=== PATIENT | female | born 1990 | race African-American/Black ===

== ENCOUNTER 2017-12-22 09:06 | Emergency (ER) | payer SELFPAY ==
[2017-12-22 09:46] LABS: URINE HCG POC HCG NEGATIVE (Negative)
[2017-12-22 10:10] LABS: BILIRUBIN,URINE NEGATIVE (NEG); CLARITY,URINE CLEAR; COLOR,URINE YELLOW; GLUCOSE,URINE NEGATIVE (NEG); NITRITE,URINE NEGATIVE (NEG); PROTEIN,URINE NEGATIVE (NEG-TRACE)
[2017-12-22 10:24] LABS: SQUAMOUS EPITHELIAL CELL,UR MANY /LPF
[2017-12-22 10:25] LABS: BACTERIA,URINE MANY /HPF (0-FEW)
[2017-12-22 11:51] LABS: ADD MAN DIFF? NO
[2017-12-22 11:54] LABS: BASO # 0.1 x10^3/uL (0.0-0.2); BASO % 1 % (0-3); EOS # 0.4 x10^3/uL (0.0-0.7); EOS % 5 % (0-3); HEMOGLOBIN 13.3 g/dL (12.0-15.5); LYMPH # 2.5 x10^3/uL (1.0-4.8); LYMPH % 28 % (24-48); MEAN CORPUSCULAR HEMOGLOBIN 31 pg (25-35); MEAN CORPUSCULAR HGB CONC 33 g/dL (31-37); MEAN CORPUSCULAR VOLUME 94 fL (79-100); MONO # 0.8 x10^3/uL (0.0-1.1); MONO % 9 % (0-9); NEUT # 4.9 x10^3uL (1.8-7.7); NEUT % 57 % (31-73); PLATELET COUNT 184 x10^3/uL (140-400); RED BLOOD COUNT 4.26 x10^6/uL (3.50-5.40); RED CELL DISTRIBUTION WIDTH 14.8 % (11.5-14.5); WHITE BLOOD COUNT 8.7 x10^3/uL (4.0-11.0)
[2017-12-22 12:02] LABS: PARTIAL THROMBOPLASTIN TIME 27 SEC (24-38); PROTHROMBIN TIME PATIENT 12.7 SEC (11.7-14.0)
[2017-12-22 12:09] LABS: ANION GAP 7 (6-14); BLOOD UREA NITROGEN 10 mg/dL (7-20); CALCIUM 8.6 mg/dL (8.5-10.1); CARBON DIOXIDE 30 mmol/L (21-32); CHLORIDE 105 mmol/L (98-107); CREATININE 0.8 mg/dL (0.6-1.0); GFR 104.1; GLUCOSE 94 mg/dL (70-99); POTASSIUM 3.8 mmol/L (3.5-5.1); SODIUM 142 mmol/L (136-145)
[2017-12-22 12:12] LABS: ALBUMIN 3.7 g/dL (3.4-5.0); ALK PHOS 59 U/L (46-116); ALT (SGPT) 21 U/L (14-59); AST (SGOT) 15 U/L (15-37); DIRECT BILIRUBIN 0.1 mg/dL (0.0-0.2); LIPASE 429 U/L (73-393); TOTAL BILIRUBIN 0.4 mg/dL (0.2-1.0); TOTAL PROTEIN 7.5 g/dL (6.4-8.2)
[2017-12-22] MEDS: ONDANSETRON PF 4 MG/2 ML VIAL. IV ×2 (12:17)
[2017-12-22] MEDS: IV NORMAL SALINE 1000ML BAG 1,000 ML IV ×2 (12:17)
[2017-12-22 12:18] LABS: CKMB INDEX 0.7 % (0-4); CKMB MASS 0.7 ng/mL (0.0-3.6); CREATINE KINASE 101 U/L (26-192)
[2017-12-22 12:52] LABS: BARBITURATES NEG (NEG); BENZODIAZEPINES NEG (NEG); CANNABINOIDS POS (NEG); COCAINE POS (NEG); METHADONE NEG (NEG); OPIATES NEG (NEG); PHENCYCLIDINE POS (NEG)
[2017-12-22 12:54] LABS: AMPHETAMINE/METHAMPHETAMINE POS (NEG); ETHANOL, URINE NEG (NEG)
== END 2017-12-22 13:31 | disposition home or self-care (01) ==
LOC: ER 09:06
DX: N30.00 Acute cystitis without hematuria (principal); J45.909 Unspecified asthma, uncomplicated
CPT/HCPCS: 36415; 76830; 76856; 80048; 80076; 80307; 81001; 81025; 82553; 83690; 85025; 85610; 85730; 87086; 96361; 96374; 99285-25; J2405; J7030

== ENCOUNTER 2018-03-05 08:01 | Emergency (ER) | payer SELFPAY ==
[2018-03-05] MEDS: AZITHROMYCIN 250 MG TABLET. PO (08:45)
[2018-03-05] MEDS: cefTRIAXone IM 250 MG VIAL IM (08:46)
== END 2018-03-05 09:10 | disposition home or self-care (01) ==
LOC: ER 09:10
DX: A54.9 Gonococcal infection, unspecified (principal); Z20.2 Contact with and (suspected) exposure to infections with a predominantly sexual mode of transmission; J45.909 Unspecified asthma, uncomplicated; Z87.440 Personal history of urinary (tract) infections
CPT/HCPCS: 96372; 99283; J0696; Q0144

== ENCOUNTER 2018-04-03 15:35 | Emergency (ER) | payer SELFPAY ==
[2018-04-03 16:29] LABS: BILIRUBIN,URINE SMALL (NEG); CLARITY,URINE CLEAR; COLOR,URINE AMBER; GLUCOSE,URINE NEGATIVE (NEG); NITRITE,URINE NEGATIVE (NEG); PROTEIN,URINE NEGATIVE (NEG-TRACE)
[2018-04-03 16:36] LABS: AMPHETAMINE/METHAMPHETAMINE NEG (NEG); BARBITURATES NEG (NEG); BENZODIAZEPINES NEG (NEG); CANNABINOIDS POS (NEG); COCAINE POS (NEG); ETHANOL, URINE NEG (NEG); METHADONE NEG (NEG); OPIATES NEG (NEG); PHENCYCLIDINE POS (NEG)
[2018-04-03 16:39] LABS: BACTERIA,URINE 0 /HPF (0-FEW); SQUAMOUS EPITHELIAL CELL,UR FEW /LPF
[2018-04-03 16:55] LABS: URINE HCG POC HCG NEGATIVE (Negative)
[2018-04-05 14:21] LABS: CHLAMYDIA PROBE Negative (Negative); GC PROBE Negative (Negative)
== END 2018-04-03 17:21 | disposition home or self-care (01) ==
LOC: ER 17:21
DX: N39.0 Urinary tract infection, site not specified (principal); N76.0 Acute vaginitis; B96.89 Other specified bacterial agents as the cause of diseases classified elsewhere; J45.909 Unspecified asthma, uncomplicated; F17.210 Nicotine dependence, cigarettes, uncomplicated
CPT/HCPCS: 80307; 81001; 81025; 87491; 87591; 99284; Q0111

== ENCOUNTER 2019-01-19 02:16 | Emergency (ER) | payer SELFPAY ==
[~2019-01-19] VITALS: Ht 162.6 cm; Wt 47.6 kg
[~2019-01-19 02:16] MED LIST: CIPR250T30 PO; METR500T PO; SULF1TAB24 PO
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
[2019-01-19] MEDS ORDERED: IV NORMAL SALINE 1000ML BAG 1,000 ML IV ONE (03:30)
[2019-01-19 04:05] LABS: BILIRUBIN,URINE NEGATIVE (NEG); CLARITY,URINE CLEAR; COLOR,URINE YELLOW; NITRITE,URINE NEGATIVE (NEG); PH,URINE 6.5; PROTEIN,URINE NEGATIVE (NEG-TRACE)
[2019-01-19 04:26] LABS: BARBITURATES NEG (NEG); BENZODIAZEPINES NEG (NEG); CANNABINOIDS POS (NEG); COCAINE NEG (NEG); METHADONE NEG (NEG); OPIATES NEG (NEG); PHENCYCLIDINE NEG (NEG)
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
[2019-01-19 04:41] LABS: BASO % 0 % (0-3); EOS # 0.2 x10^3/uL (0.0-0.7); EOS % 3 % (0-3); HEMATOCRIT 39.2 % (36.0-47.0); LYMPH # 2.1 x10^3/uL (1.0-4.8); LYMPH % 28 % (24-48); MEAN CORPUSCULAR HEMOGLOBIN 31 pg (25-35); MEAN CORPUSCULAR HGB CONC 33 g/dL (31-37); MEAN CORPUSCULAR VOLUME 93 fL (79-100); MONO # 0.7 x10^3/uL (0.0-1.1); MONO % 10 % (0-9); NEUT # 4.4 x10^3uL (1.8-7.7); NEUT % 59 % (31-73); PLATELET COUNT 179 x10^3/uL (140-400); RED BLOOD COUNT 4.22 x10^6/uL (3.50-5.40); RED CELL DISTRIBUTION WIDTH 14.2 % (11.5-14.5); WHITE BLOOD COUNT 7.6 x10^3/uL (4.0-11.0)
[2019-01-19 04:50] LABS: BACTERIA,URINE FEW /HPF (0-FEW); SQUAMOUS EPITHELIAL CELL,UR FEW /LPF
[2019-01-19 04:54] LABS: AMPHETAMINE/METHAMPHETAMINE NEG (NEG)
[2019-01-19 04:58] LABS: CALCIUM 8.7 mg/dL (8.5-10.1); CREATININE 0.8 mg/dL (0.6-1.0); GFR 102.6; POTASSIUM 3.3 mmol/L (3.5-5.1)
[2019-01-19] MEDS ORDERED: ORPH100T PO (05:01)
[2019-01-19 05:04] LABS: ALBUMIN 3.9 g/dL (3.4-5.0); ALBUMIN/GLOBULIN RATIO 1.1 (1.0-1.7); MAGNESIUM 2.2 mg/dL (1.8-2.4); TOTAL BILIRUBIN 0.6 mg/dL (0.2-1.0); TOTAL PROTEIN 7.6 g/dL (6.4-8.2)
[2019-01-19 05:06] VITALS: BP 109/67
[2019-01-19] MEDS ORDERED: POTASSIUM CHLORIDE 20 MEQ TABLET.ER. PO ONE (05:30)
--- NOTE | 2019-01-19 06:51 | EKG ---
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
== END 2019-01-19 05:35 | disposition home or self-care (01) ==
LOC: ER 02:16
DX: T74.11XA Adult physical abuse, confirmed, initial encounter (principal); R42 Dizziness and giddiness; F41.9 Anxiety disorder, unspecified; E87.6 Hypokalemia; R51 Headache; J45.909 Unspecified asthma, uncomplicated; N89.8 Other specified noninflammatory disorders of vagina; Y04.2XXA Assault by strike against or bumped into by another person, initial encounter; Y93.89 Activity, other specified; Y92.89 Other specified places as the place of occurrence of the external cause; Y99.8 Other external cause status
CPT/HCPCS: 36415; 70450; 72125; 80053; 80307; 81001; 81025; 83735; 85025; 93005; 96361; 96374; 99284; G0480; J2060; J7030

== ENCOUNTER 2019-02-10 05:25 | Emergency (ER) | payer SELFPAY ==
[~2019-02-10] VITALS: Ht 149.9 cm; Wt 49.9 kg
[~2019-02-10 05:25] MED LIST changes: +ORPH100T PO
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
[2019-02-10 07:27] LABS: BARBITURATES NEG (NEG); BENZODIAZEPINES NEG (NEG); CANNABINOIDS POS (NEG); COCAINE POS (NEG); METHADONE NEG (NEG); OPIATES NEG (NEG); PHENCYCLIDINE POS (NEG)
[2019-02-10 07:29] LABS: AMPHETAMINE/METHAMPHETAMINE NEG (NEG)
[2019-02-10 07:30] VITALS: BP 111/71
[2019-02-10] MEDS ORDERED: OXYM30SP NS (07:48)
[2019-02-10] MEDS ORDERED: NAPR-683 PO (07:48)
== END 2019-02-10 08:00 | disposition home or self-care (01) ==
LOC: ER 05:25
DX: S02.2XXA Fracture of nasal bones, initial encounter for closed fracture (principal); R51 Headache; F19.10 Other psychoactive substance abuse, uncomplicated; F17.210 Nicotine dependence, cigarettes, uncomplicated; J45.909 Unspecified asthma, uncomplicated; Z90.89 Acquired absence of other organs; Z71.6 Tobacco abuse counseling; Y04.0XXA Assault by unarmed brawl or fight, initial encounter; Y93.89 Activity, other specified; Y92.89 Other specified places as the place of occurrence of the external cause; Y99.8 Other external cause status
CPT/HCPCS: 70450; 70486; 72125; 80307; 81025; 99284-25

== ENCOUNTER 2019-02-19 03:03 | Emergency (ER) | payer SELFPAY ==
[~2019-02-19] VITALS: Ht 149.9 cm; Wt 49.9 kg
[~2019-02-19 03:03] MED LIST changes: +NAPR-683 PO; +OXYM30SP NS
[2019-02-19 03:10] VITALS: BP 110/68
[2019-02-19 03:27] LABS: BILIRUBIN,URINE NEGATIVE (NEG); CLARITY,URINE CLEAR; COLOR,URINE YELLOW; NITRITE,URINE NEGATIVE (NEG); PROTEIN,URINE NEGATIVE (NEG-TRACE)
[2019-02-19] MEDS ORDERED: cefTRIAXone IM 250 MG VIAL IM ONE (03:45)
[2019-02-19] MEDS ORDERED: FLUCONAZOLE 100 MG TABLET. PO ONE (03:45)
[2019-02-19] MEDS ORDERED: AZITHROMYCIN 250 MG TABLET. PO ONE (03:45)
[2019-02-19 03:46] LABS: BACTERIA,URINE 0 /HPF (0-FEW); SQUAMOUS EPITHELIAL CELL,UR FEW /LPF; WBC,URINE 0 /HPF (0-4)
[2019-02-19 03:48] LABS: TRICHOMONAS,URINE PRESENT
[2019-02-19] MEDS ORDERED: METR500T PO (04:12)
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
== END 2019-02-19 04:30 | disposition home or self-care (01) ==
LOC: ER 03:03
DX: A59.01 Trichomonal vulvovaginitis (principal); J45.909 Unspecified asthma, uncomplicated; Z90.89 Acquired absence of other organs
CPT/HCPCS: 81001; 81025; 87491; 87591; 96372; 99283; J0696; Q0144

== ENCOUNTER 2019-02-22 00:52 | Emergency (ER) | payer SELFPAY ==
[~2019-02-22] VITALS: Ht 165.1 cm; Wt 49.9 kg
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
== END 2019-02-22 04:45 | disposition home or self-care (01) ==
LOC: ER 00:52 → EEVIPCON 00:52 → ER 04:45
DX: T74.11XA Adult physical abuse, confirmed, initial encounter (principal); J45.909 Unspecified asthma, uncomplicated; Z98.51 Tubal ligation status; Z90.89 Acquired absence of other organs; Y04.0XXA Assault by unarmed brawl or fight, initial encounter; Y93.89 Activity, other specified; Y92.89 Other specified places as the place of occurrence of the external cause; Y99.8 Other external cause status
CPT/HCPCS: 99281

== ENCOUNTER 2021-03-04 09:57 | Emergency (ER) | payer SELFPAY ==
[~2021-03-04] VITALS: Ht 149.9 cm; Wt 50.0 kg
[~2021-03-04 09:57] MED LIST changes: -OXYM30SP NS; +OXYM30SP25 NS
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
[2021-03-04 11:36] LABS: BILIRUBIN,URINE NEGATIVE (NEG); CLARITY,URINE CLEAR; COLOR,URINE YELLOW; NITRITE,URINE NEGATIVE (NEG); PROTEIN,URINE NEGATIVE (NEG-TRACE)
[2021-03-04 12:07] LABS: BACTERIA,URINE FEW /HPF (0-FEW); RBC,URINE 0 /HPF (0-2); WBC,URINE 20-40 /HPF (0-4)
[2021-03-04] MEDS ORDERED: AZITHROMYCIN 250 MG TABLET. PO ONE (14:15)
[2021-03-04] MEDS ORDERED: cefTRIAXone IM 500 MG VIAL. IM ONE (14:15)
[2021-03-04] MEDS ORDERED: metroNIDAZOLE 500 MG TABLET PO ONE (14:15)
[2021-03-04] MEDS ORDERED: CLIN150C15 PO (14:39)
[2021-03-04 16:00] VITALS: BP 118/80
[2021-03-05 17:14] LABS: GC PROBE Negative (Negative)
== END 2021-03-04 16:30 | disposition home or self-care (01) ==
LOC: ER 09:57
DX: N76.0 Acute vaginitis (principal); A59.01 Trichomonal vulvovaginitis; B96.89 Other specified bacterial agents as the cause of diseases classified elsewhere; J45.909 Unspecified asthma, uncomplicated; F17.200 Nicotine dependence, unspecified, uncomplicated; Z98.890 Other specified postprocedural states
CPT/HCPCS: 81001; 81025; 87086; 87491; 87591; 96372; 99284; J0696; Q0111

== ENCOUNTER 2021-09-10 01:04 | Emergency (ER) | payer SELFPAY ==
[~2021-09-10] VITALS: Ht 160 cm; Wt 50.0 kg
[~2021-09-10 01:04] MED LIST changes: +CLIN150C16 PO
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
[2021-09-10 06:39] VITALS: BP 106/56
[2021-09-10] MEDS ORDERED: AMOXICILLIN 250 MG CAPSULE. PO ONE (07:30)
[2021-09-10] MEDS ORDERED: AMOX875T PO (07:31)
== END 2021-09-10 07:41 | disposition home or self-care (01) ==
LOC: ER 01:04
DX: T16.2XXA Foreign body in left ear, initial encounter (principal); F17.200 Nicotine dependence, unspecified, uncomplicated; J45.909 Unspecified asthma, uncomplicated; X58.XXXA Exposure to other specified factors, initial encounter; Y93.89 Activity, other specified; Y92.89 Other specified places as the place of occurrence of the external cause; Y99.8 Other external cause status
CPT/HCPCS: 99284